=== PATIENT | female | born 1980 | race Hispanic/Latino ===

== ENCOUNTER 2021-05-08 04:17 | Emergency (ER) | payer SELFPAY ==
--- NOTE | 2021-05-08 05:10 | Emergency Department Report ---
ED General Adult HPI - General Chief complaint: Dental/Oral Stated complaint: LIP FACE SWOLLEN Source: patient Mode of arrival: Ambulatory Limitations: No Limitations - History of Present Illness Initial comments: Patient is a 40-year-old female with no past medical history who presented to the ED with complaint of acute onset persistent painful swollen mild erythematous rash on right cheek for the last 2 days. Patient states that the swelling and the pain worsened in the last 24 hours. Patient denies dizziness, syncope, fever, chills, dental pain, sore throat, nasal and sinus congestion, traumatic injury, headache, chest pain or shortness of breath, nausea and vomiting or diarrhea. MD Complaint: right cheek swelling and pain -: Sudden, days(s) (2) Location: face, mouth Radiation: non-radiation Severity scale (0 -10): 6 Quality: aching, sharp Consistency: constant Improves with: none Worsens with: none Associated Symptoms: denies other symptoms, rash (mildly erythematous rash on right cheek). denies: confusion, chest pain, cough, diaphoresis, fever/chills, headaches, loss of appetite, malaise, nausea/vomiting, seizure, shortness of breath, syncope, weakness, other Treatments Prior to Arrival: none - Related Data Previous Rx's Medication Instructions Recorded Last Taken Type Clindamycin [Clindamycin CAP] 300 mg PO Q6H #40 cap 05/08/21 Unknown Rx Ibuprofen [Motrin] 800 mg PO Q8HR PRN #30 tablet 05/08/21 Unknown Rx Allergies Allergy/AdvReac Type Severity Reaction Status Date / Time cephalexin [From Keflex] Allergy Itching Verified 05/08/21 04:31 codeine Allergy Shortness Verified 05/08/21 04:31 of Breath doxycycline Allergy Hives Verified 05/08/21 04:31 morphine Allergy Shortness Verified 05/08/21 04:31 of Breath Penicillins Allergy Itching Verified 05/08/21 04:31 tramadol Allergy Unknown Verified 05/08/21 04:31 ED Review of Systems ROS: Stated complaint: LIP FACE SWOLLEN Other details as noted in HPI Constitutional: denies: chills, fever Eyes: denies: eye pain, eye discharge, vision change ENT: other (Painful swollen mild erythematous rash on the right cheek). denies: ear pain, throat pain Respiratory: denies: cough, shortness of breath, wheezing Cardiovascular: denies: chest pain, palpitations Endocrine: no symptoms reported Gastrointestinal: denies: abdominal pain, nausea, vomiting, diarrhea Genitourinary: denies: urgency, dysuria, discharge Musculoskeletal: denies: back pain, joint swelling, arthralgia Skin: rash (Mild erythematous painful swollen rash on right cheek), change in color. denies: lesions, pruritus Neurological: denies: headache, weakness, paresthesias Psychiatric: denies: anxiety, depression Hematological/Lymphatic: denies: easy bleeding, easy bruising ED Past Medical Hx - Past Medical History Previous Medical History?: No - Surgical History Past Surgical History?: No - Medications Home Medications: Home Medications Medication Instructions Recorded Confirmed Last Taken Type Clindamycin [Clindamycin CAP] 300 mg PO Q6H #40 cap 05/08/21 Unknown Rx Ibuprofen [Motrin] 800 mg PO Q8HR PRN #30 tablet 05/08/21 Unknown Rx ED Physical Exam - General Limitations: No Limitations General appearance: alert, in no apparent distress - Head Head exam: Present: atraumatic, normocephalic, normal inspection - Eye Eye exam: Present: normal appearance, PERRL, EOMI Pupils: Present: normal accommodation - ENT ENT exam: Present: normal orophraynx, mucous membranes moist, TM's normal bilaterally, normal external ear exam, other (Palpable mild tenderness on right cheek due to a mildly erythematous maculopapular rash with swelling) - Neck Neck exam: Present: normal inspection, tenderness, full ROM - Respiratory Respiratory exam: Present: normal lung sounds bilaterally. Absent: respiratory distress, wheezes, rales, rhonchi, chest wall tenderness, accessory muscle use, decreased breath sounds, prolonged expiratory - Cardiovascular Cardiovascular Exam: Present: regular rate, normal rhythm, normal heart sounds. Absent: systolic murmur, diastolic murmur, rubs, gallop - GI/Abdominal GI/Abdominal exam: Present: soft, normal bowel sounds. Absent: tenderness, guarding - Extremities Exam Extremities exam: Present: normal inspection, full ROM, normal capillary refill - Back Exam Back exam: Present: normal inspection, full ROM. Absent: tenderness, CVA tenderness (R), CVA tenderness (L), muscle spasm, paraspinal tenderness, vertebral tenderness - Neurological Exam Neurological exam: Present: alert, oriented X3, CN II-XII intact, normal gait, reflexes normal - Psychiatric Psychiatric exam: Present: normal affect, normal mood - Skin Skin exam: Present: warm, dry, intact, rash (Mildly erythematous maculopapular rash on the right cheek with localized tenderness and none fluctuance), erythema. Absent: normal color ED Medical Decision Making - Medical Decision Making This is a 40-year-old female with no past medical history who presented to the ED with complaint of acute onset persistent painful swollen mild erythematous rash on right cheek for the last 2 days. Patient states that the swelling and the pain worsened in the last 24 hours. In the ED, patient is alert and oriented x3 and is not in distress. Patient is however hypertensive and attributes this to her pain. Patient with a history and physical exam findings, the patient was discharged home on pain medications and oral antibiotics for suspected facial cellulitis. Patient was advised to follow-up with her primary care physician in 7 to 10 days for reevaluation return to the ED immediately if symptoms get worse. - Differential Diagnosis Facial cellulitis; gingivitis; folliculitis Critical care attestation.: If time is entered above; I have spent that time in minutes in the direct care of this critically ill patient, excluding procedure time. ED Disposition Clinical Impression: Acute folliculitis, Facial cellulitis Disposition: 01 HOME / SELF CARE / HOMELESS Is pt being admited?: No Does the pt Need Aspirin: No Condition: Stable Instructions: Cellulitis, Adult, [id number], Folliculitis Additional Instructions: Take medication with food, drink plenty fluids and follow-up with your primary care physician in 7 to 10 days for reevaluation. Return to the ED immediately if symptoms get worse. Prescriptions: Clindamycin [Clindamycin CAP] 300 mg PO Q6H #40 cap Ibuprofen [Motrin] 800 mg PO Q8HR PRN #30 tablet PRN Reason: Pain , Severe (7-10) Referrals: [facility] [Provider Group] - 3-5 Days Time of Disposition: 05:08 Print Language: [place]
[2021-05-08 05:54] VITALS: BP 150/86
== END 2021-05-08 05:40 | disposition home or self-care (01) ==
LOC: ED 04:17
DX: L73.9 Follicular disorder, unspecified (principal); L03.211 Cellulitis of face
CPT/HCPCS: 99282